=== PATIENT | female | born 2000 | race Caucasian/White ===

== ENCOUNTER 2019-05-16 11:35 | Emergency (ER) | payer OTHER, BC ==
[~2019-05-16] VITALS: Ht 167.6 cm; Wt 93.2 kg
[2019-05-16 11:35] VITALS: BP 151/89
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
[2019-05-16] MEDS: KETOROLAC 30 MG/ML VIAL. IM ONE (12:30)
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
[2019-05-16] MEDS ORDERED: MELO7.5T29 PO (13:29)
[2019-05-16] MEDS ORDERED: ORPH-16 PO (13:29)
== END 2019-05-16 13:45 | disposition home or self-care (01) ==
LOC: ER 11:40
DX: S80.02XA Contusion of left knee, initial encounter (principal); S09.8XXA Other specified injuries of head, initial encounter; M54.2 Cervicalgia; Z88.8 Allergy status to other drugs, medicaments and biological substances; V59.9XXA Occupant (driver) (passenger) of pick-up truck or van injured in unspecified traffic accident, initial encounter; Y93.89 Activity, other specified; Y92.488 Other paved roadways as the place of occurrence of the external cause; Y99.8 Other external cause status
CPT/HCPCS: 70450; 72125; 73562; 81025; 96372; 99284; J1885